=== PATIENT | female | born 1990 | race Caucasian/White ===

== ENCOUNTER → 2016-11-03 | Outpatient (CLI) | payer BC, OTHER ==
--- NOTE | 2016-11-04 09:13 | MR ---
MRI Right Ankle Without Contrast History: Right ankle pain. History of ankle sprain in July with continued pain. Evaluate for OCD. ICD-10 code S93.491A. Technique: MRI was performed of the right ankle using a 3 [employer] MRI system. Sagittal, coronal, and ax ial imaging was obtained with standard imaging sequences. Findings: General: Minimal bone marrow edema is seen in the medial malleolus. No evidence for fracture. No evid ence for an osteochondral lesion of the talar dome. Minimal tibiotalar joint effusion. Ligaments and tendons: There is complete tear of the deltoid ligament at the deep and superficial fib ers. There is abnormal signal intensity in the anterior talofibular ligament suggesting partial tear and scarring. There is attenuation of the distal calcaneofibular ligament. Posterior talofibular liga ment is intact. Anterior posterior tibiofibular ligaments are intact. Peroneal tendons: There is abnormal signal intensity and attenuation of the peroneal longus tendon di stal to the peroneal tubercle. Peroneal brevis tendon is unremarkable. Superior peroneal retinaculum is intact. Posterior medial tendons: Unremarkable. Anterior tendons: Unremarkable. Achilles tendon: Unremarkable. Plantar fascia: Unremarkable. Impression: 1. Complete tear of the deltoid ligament. Partial tear anterior talofibular ligament and calcaneofibu lar ligament. Contusion medial malleolus. 2. Partial tear peroneal longus tendon distal to the peroneal tubercle.
== END ==
LOC: FIMAGING 16:13
PROVIDERS: ATTEND Orthopaedic Surgery
DX: S93.421A Sprain of deltoid ligament of right ankle, initial encounter (principal); S93.491A Sprain of other ligament of right ankle, initial encounter; S86.101A Unspecified injury of other muscle(s) and tendon(s) of posterior muscle group at lower leg level, right leg, initial encounter